=== PATIENT | male | born 1970 | race Caucasian/White ===

== ENCOUNTER 2021-02-05 10:01 | Inpatient (IN) | payer OTHER ==
[2021-02-05] VITALS (9 sets, daily range): BP systolic 122–144; BP diastolic 39–78; PULSE 70–82; TEMP 98.5–98.9
[~2021-02-05] VITALS: Ht 177.8 cm; Wt 205.9 kg
[~2021-02-05 10:01] MED LIST: ALBUTEROL0.83 MG/ML IH; ANORO IH; BENTYL 10MG10 MG/CAP PO; COLCRYS0.6 MG PO; ELIQUIS 5MG PO; FLOVENT 220MCG7.9 GM IH; LASIX 40MG TABL40 MG PO; LEXAPRO 10MG10 MG PO; MOTRIN 800800 MG/TAB PO; NORCO 325 MG-7.1 TAB PO; TOPROL XL 50MG50 MG PO; TYLENOL 500MG500 MG PO; ZANAFLEX CAPSULE4 MG PO
[2021-02-05 11:23] LABS: BASO # 0.1 K/mm3 (0.0-0.2); BASO % 0.5 % (0.0-2.0); EOS # 0.2 K/mm3 (0.0-0.7); EOS % 1.1 % (0-4.0); GRAN # 11.8 K/mm3 (1.4-6.5); GRAN % 79.5 % (42.2-75.2); HEMATOCRIT 48.8 % (42.0-52.0); HEMOGLOBIN 15.7 g/dl (13.5-18.0); LYMPH # 1.6 K/mm3 (1.2-3.4); LYMPH % 10.8 % (20.0-51.0); MEAN CELL VOLUME 86 fl (80.0-100.0); MEAN CORPUSCULAR HEMOGLOBIN 28 pg (27.0-31.0); MEAN CORPUSCULAR HGB CONC 32 g/dl (33.0-37.0); MEAN PLATELET VOLUME 10.3 fl (7.4-10.4); MONO # 1.1 K/mm3 (0.1-0.6); MONO % 7.6 % (1.7-9.3); PLATELET COUNT 372 K/mm3 (130-400); RED BLOOD COUNT 5.66 M/mm3 (4.20-5.60); REDCELL DISTRIBUTION WIDTH-CV 14.1 % (11.5-14.5)
[2021-02-05 11:44] LABS: BILIRUBIN,TOTAL 0.7 mg/dL (0.2-1.2); CALCIUM 9.1 mg/dL (8.4-10.2); CREATININE, serum 0.81 mg/dL (0.72-1.25); POTASSIUM 3.9 mmol/L (3.5-4.5); TOTAL PROTEIN 7.5 gm/dL (6.2-8.1)
--- NOTE | 2021-02-05 17:30 | NUR ---
Patient up from OR. Alert and oriented x 3. Family at bedside. Denies pain at this time. States BLE numb from spinal. Post op VSS and post op fluids infusing per orders. Denies needs at this time.
--- NOTE | 2021-02-05 19:32 | NUR ---
Patient c/o nausea this afternoon, zofran given per orders. [place] given for scrotal pain. Denies needs at this time. Will report off to wild oyster harvester.
--- NOTE | 2021-02-05 20:00 | NUR ---
PATIENT IS ALERT AND ORIENTED X4. PATIENT HAS HUNTER DRAIN TO GROIN ABCESS. PATIENT HAS MARADIAGA WITH CLEAR YELLOW OUTPUT. PATIENT HAS IV TO LEFT AC. PATIENT GIVEN PAIN MEDS PER ORDERS. PATIENT WEARING SCD'S ON BILATERAL LOWER EXTREMITIES. PATIENT DENIES FURTHER NEEDS AT THIS TIME. CALL LIGHT WITHIN REACH. HEAD TO TOE ASSESSMENT COMPLETE.
[2021-02-06] VITALS (7 sets, daily range): BP systolic 121–142; BP diastolic 61–84; PULSE 74–87; TEMP 98–99.1
--- NOTE | 2021-02-06 06:37 | NUR ---
PATIENT DID WELL THROUGHOUT NIGHT. PAIN MEDS GIVEN PER ORDERS. SEBLE PADS CHANGED FOR DRAINAGE FROM ABCESS. NO FURTHER NEEDS AT THIS TIME. WILL REPORT TO DAYSHIFT.
[2021-02-06 08:19] LABS: BASO % 0.3 % (0.0-2.0); EOS # 0.1 K/mm3 (0.0-0.7); EOS % 0.7 % (0-4.0); GRAN # 12.2 K/mm3 (1.4-6.5); GRAN % 81.4 % (42.2-75.2); HEMATOCRIT 46.9 % (42.0-52.0); HEMOGLOBIN 15.1 g/dl (13.5-18.0); LYMPH # 1.3 K/mm3 (1.2-3.4); LYMPH % 8.7 % (20.0-51.0); MEAN CELL VOLUME 87 fl (80.0-100.0); MEAN CORPUSCULAR HEMOGLOBIN 28 pg (27.0-31.0); MEAN CORPUSCULAR HGB CONC 32 g/dl (33.0-37.0); MEAN PLATELET VOLUME 11.1 fl (7.4-10.4); MONO # 1.3 K/mm3 (0.1-0.6); MONO % 8.4 % (1.7-9.3); PLATELET COUNT 350 K/mm3 (130-400); REDCELL DISTRIBUTION WIDTH-CV 14.3 % (11.5-14.5)
--- NOTE | 2021-02-06 09:34 | NUR ---
SW met with the patient to discuss discharge plan. The patient lives in [place] with his significant other, Sultana Mancia (ph#[phone]). He reports independence with ADLs and has a cane. The patient's PCP is Dr. Rakesh Garrett and he receives his medications from [facility]. The patient does not have a DPOA-HC, but he was interested in obtaining a form. SW provided. The patient plans to return home with his signifant other upon discharge. SW to follow as needed. *Discharge plan: home with signifant other*
[2021-02-06] MEDS ORDERED: ASMANEX HF200 MCG/Ac IH (09:39)
[2021-02-06] MEDS ORDERED: TRELEGY ELLIPT1 EACH IH (09:39)
--- NOTE | 2021-02-06 10:58 | NUR ---
First visit from the r d internship. No needs right now.
[2021-02-06 12:56] LABS: CALCIUM 9.3 mg/dL (8.4-10.2); CREATININE, serum 0.7 mg/dL (0.72-1.25)
--- NOTE | 2021-02-06 18:54 | NUR ---
Patient doing well throughout the day. Scrotum elevated on towel. IV restarted this AM to right hand, x 1 attempt. Pain medications given per orders for scrotal pain. Patient states decreased appetite today. Denies needs at this time. Will report off to grocery clerk.
--- NOTE | 2021-02-06 21:43 | NUR ---
PT IN BED. IS ALERT AND ORIENTED X4. HAS SL TO RIGHT HAND, CONNECTED VANCOMYCIN AT THIS TIME. TAKES NORCO 7.5MG 1 TAB PO FOR SCROTUM AND BACK PAIN. HAS DRAIN IN SCROTUM. BLOODY DRAINAGE NOTED. MARADIAGA TO BSD WITH YELLOW URINE. PT HAS OWN CPAP AT BEDSIDE.
--- NOTE | 2021-02-07 | NUR ---
IV ANTIBIOTIC COMPLETE, SL FLUSHED TO RT HAND. PT HAS CPAP ON.
[2021-02-07 03:31] VITALS: BP 135/84; PULSE 69; TEMP 98.2
--- NOTE | 2021-02-07 06:15 | NUR ---
MEDICATED WITH NORCO 7.5MG 1 TAB PO FOR BACK/SCROTUM PAIN.
[2021-02-07 06:54] LABS: BASO % 0.4 % (0.0-2.0); EOS # 0.2 K/mm3 (0.0-0.7); EOS % 1.8 % (0-4.0); GRAN # 8.2 K/mm3 (1.4-6.5); HEMATOCRIT 44.7 % (42.0-52.0); HEMOGLOBIN 14.5 g/dl (13.5-18.0); LYMPH # 1.7 K/mm3 (1.2-3.4); LYMPH % 15.2 % (20.0-51.0); MEAN CELL VOLUME 86 fl (80.0-100.0); MEAN CORPUSCULAR HEMOGLOBIN 28 pg (27.0-31.0); MEAN CORPUSCULAR HGB CONC 32 g/dl (33.0-37.0); MEAN PLATELET VOLUME 11.1 fl (7.4-10.4); MONO # 1.1 K/mm3 (0.1-0.6); PLATELET COUNT 341 K/mm3 (130-400); RED BLOOD COUNT 5.23 M/mm3 (4.20-5.60); REDCELL DISTRIBUTION WIDTH-CV 13.9 % (11.5-14.5)
[2021-02-07 07:07] LABS: CALCIUM 9.2 mg/dL (8.4-10.2); CREATININE, serum 0.7 mg/dL (0.72-1.25); POTASSIUM 3.9 mmol/L (3.5-4.5)
[2021-02-07 08:53] VITALS: BP 119/58; PULSE 76; TEMP 98.7
--- NOTE | 2021-02-07 09:30 | NUR ---
Pt IV had infiltrated. Notified Dr Shelley and received an order for PICC line placement.
--- NOTE | 2021-02-07 10:22 | NUR ---
TIP Churchill with AIVS in placing PICC line
[2021-02-07 12:11] VITALS: BP 150/82; PULSE 74; TEMP 98.3
--- NOTE | 2021-02-07 14:28 | NUR ---
Sherman with PT in working with pt at this time
[2021-02-07 16:00] VITALS: BP 133/90; PULSE 72; TEMP 98.8
--- NOTE | 2021-02-07 16:28 | NUR ---
PATIENT IS ALERT AND ORIENTED X4. SAYS HE WALKED IN ROOM WITH PT. PATIENT HAS MARADIAGA AND OPEN CYST ON TAILBONE. PATIENT HAS IV TO LEFT FOREARM. PATIENT HAS HUNTER DRAIN TO GROIN. PATIENT GIVEN PAIN MEDS PER ORDERS. PATIENT GIVEN WARM BLANKET AND PILLOWS USED TO DISTRIBUTE PRESSURE. DENIES FURTHER NEEDS AT THIS TIME. CALL LIGHT WITHIN REACH.
[2021-02-07 20:01] VITALS: BP 157/79; PULSE 81; TEMP 98.7
--- NOTE | 2021-02-07 23:50 | NUR ---
ALERT AND OX4. DENIES SOA, CHEST PAIN OR DIZZY. RATING SCROTAL PAIN /. MORPHINE AND REPOSITIONED. PM MEDS GIVEN. ANTIBOTICS HUNG. ASSESSMENT COMPLETE. CPAP ON FOR HS. CALL LIGHT WI REACH.
[2021-02-08 00:37] VITALS: BP 148/83; PULSE 80; TEMP 98.6
[2021-02-08 05:06] VITALS: BP 143/88; PULSE 76; TEMP 97.7
[2021-02-08 07:57] VITALS: BP 130/82; PULSE 71; TEMP 98.3
[2021-02-08 09:02] LABS: CALCIUM 10.1 mg/dL (8.4-10.2); CREATININE, serum 0.77 mg/dL (0.72-1.25); POTASSIUM 3.9 mmol/L (3.5-4.5)
[2021-02-08 09:05] LABS: BASO # 0.1 K/mm3 (0.0-0.2); BASO % 0.5 % (0.0-2.0); EOS # 0.3 K/mm3 (0.0-0.7); EOS % 3.3 % (0-4.0); GRAN # 7.2 K/mm3 (1.4-6.5); GRAN % 69.3 % (42.2-75.2); HEMATOCRIT 45.8 % (42.0-52.0); HEMOGLOBIN 14.7 g/dl (13.5-18.0); LYMPH # 1.5 K/mm3 (1.2-3.4); LYMPH % 14.6 % (20.0-51.0); MEAN CELL VOLUME 86 fl (80.0-100.0); MEAN CORPUSCULAR HEMOGLOBIN 28 pg (27.0-31.0); MEAN CORPUSCULAR HGB CONC 32 g/dl (33.0-37.0); MEAN PLATELET VOLUME 10.8 fl (7.4-10.4); MONO # 1.2 K/mm3 (0.1-0.6); MONO % 11.5 % (1.7-9.3); PLATELET COUNT 326 K/mm3 (130-400); RED BLOOD COUNT 5.31 M/mm3 (4.20-5.60); REDCELL DISTRIBUTION WIDTH-CV 13.8 % (11.5-14.5)
--- NOTE | 2021-02-08 10:30 | NUR ---
PT working with pt at thistime
--- NOTE | 2021-02-08 12:01 | NUR ---
KRISTYN met with the patient to follow up and review discharge plan. The patient states that he is still having a lot of pain with ambulation. He states that he still plans on returning home with his girlfriend upon discharge. He reports that if he goes home with a PICC line, then he may be interested in home health or might just get outpatient services. He would like to see how the rest of today goes. SW to continue to follow.
[2021-02-08 12:45] VITALS: BP 139/68; PULSE 80; TEMP 98.6
--- NOTE | 2021-02-08 12:54 | NUR ---
Pt reported to student that he was in a lot of pain and needed pain medication, requesting IV pain medication. Informed him earlier that he had pain medication at 0850 and it was every 4 hours. Discussed again with pt and he stated that he thought i said 0815. Asked pt to report his pain and he said it was 4/10. Oral and IV pain medication given. Discussed with pt his overall pain which he stated is getting better over time. He said that he is now able to walk to the door and is able to sit on a toilet. Pt appears to be relaxed, call light within reach
[2021-02-08 16:00] VITALS: BP 140/70; PULSE 82; TEMP 97.4
--- NOTE | 2021-02-08 16:41 | NUR ---
Pt has done well throughout the afternoon. Oral pain medication for the most part is taking care of his pain. Pt did ambulate out to the desk and back with PT.
[2021-02-08 19:34] VITALS: BP 133/65; PULSE 78; TEMP 98.2
[2021-02-09 00:40] VITALS: BP 131/78; PULSE 88; TEMP 98.7
[2021-02-09 04:00] VITALS: BP 126/66; PULSE 73; TEMP 98.1
[2021-02-09 07:07] VITALS: BP 135/79; PULSE 73; TEMP 98.6
[2021-02-09 07:14] LABS: BASO # 0.1 K/mm3 (0.0-0.2); BASO % 0.5 % (0.0-2.0); EOS # 0.6 K/mm3 (0.0-0.7); EOS % 5.2 % (0-4.0); GRAN # 7.3 K/mm3 (1.4-6.5); GRAN % 69.1 % (42.2-75.2); HEMATOCRIT 43.3 % (42.0-52.0); HEMOGLOBIN 13.9 g/dl (13.5-18.0); LYMPH # 1.5 K/mm3 (1.2-3.4); LYMPH % 14.7 % (20.0-51.0); MEAN CELL VOLUME 87 fl (80.0-100.0); MEAN CORPUSCULAR HEMOGLOBIN 28 pg (27.0-31.0); MEAN CORPUSCULAR HGB CONC 32 g/dl (33.0-37.0); MEAN PLATELET VOLUME 10.5 fl (7.4-10.4); MONO % 9.9 % (1.7-9.3); PLATELET COUNT 305 K/mm3 (130-400); REDCELL DISTRIBUTION WIDTH-CV 13.8 % (11.5-14.5)
[2021-02-09 07:31] LABS: CALCIUM 9.3 mg/dL (8.4-10.2); CREATININE, serum 0.75 mg/dL (0.72-1.25); POTASSIUM 4.2 mmol/L (3.5-4.5)
[2021-02-09] MEDS ORDERED: AMOXICILLIN 8751 TAB PO (08:51)
[2021-02-09] MEDS ORDERED: NORCO 325 MG-101 TAB PO (08:54)
--- NOTE | 2021-02-09 10:12 | NUR ---
The patient is being switched to oral antibiotics. The patient is to discharge back home with his girfriend today, 02/09. No additional needs at this time.
[2021-02-09 12:25] VITALS: BP 144/82; PULSE 72; TEMP 98.3
--- NOTE | 2021-02-09 14:29 | NUR ---
Discharge education provided to patient and significant other. Educated on when to call provider and follow up appointments. Patient educated on medications and deras catheter care. Patient verbalizes understanding. Denies additional needs at this time. Midline discontinued by Kerline WHELAN.
== END 2021-02-09 14:30 | disposition home or self-care (01) | DRG 717 ==
LOC: COL.ER 10:01 → INPTSU 13:24 → SURG 13:24
PROVIDERS: Physician Assistant; Student in an Organized Health Care Education/Training Program; Surgery; ADMIT Internal Medicine
PROC: 0V950ZZ Drainage of Scrotum, Open Approach (ICD-10-PCS; principal; 2021-02-05 14:15)
PROC: 05HY33Z Insertion of Infusion Device into Upper Vein, Percutaneous Approach (ICD-10-PCS; 2021-02-07)
DX: N49.2 Inflammatory disorders of scrotum (principal); L03.315 Cellulitis of perineum; Z68.44 Body mass index [BMI] 60.0-69.9, adult; K58.9 Irritable bowel syndrome, unspecified; E66.01 Morbid (severe) obesity due to excess calories; J45.909 Unspecified asthma, uncomplicated; M19.90 Unspecified osteoarthritis, unspecified site; L40.9 Psoriasis, unspecified; K76.0 Fatty (change of) liver, not elsewhere classified; I48.0 Paroxysmal atrial fibrillation; M10.9 Gout, unspecified; F32.A Depression, unspecified; F41.9 Anxiety disorder, unspecified; G89.29 Other chronic pain; M54.9 Dorsalgia, unspecified; K42.9 Umbilical hernia without obstruction or gangrene; B96.20 Unspecified Escherichia coli [E. coli] as the cause of diseases classified elsewhere; Z87.442 Personal history of urinary calculi; Z87.891 Personal history of nicotine dependence
CPT/HCPCS: 99223-AI; 99232-AI; 99233-AI; 99239; C1751; C1892; J0696; J1335; J1650; J2250; J2270; J2405; J2543; J3010; J3370; J7040; Q9967

== ENCOUNTER 2021-02-10 01:57 | Emergency (ER) | payer OTHER ==
[~2021-02-10 01:57] MED LIST changes: +AMOXICILLIN 8751 TAB PO; +ASMANEX HF200 MCG/Ac IH; +NORCO 325 MG-101 TAB PO; +TRELEGY ELLIPT1 EACH IH
[2021-02-10 01:58] VITALS: TEMP 97.4
[2021-02-10 04:11] VITALS: BP 155/92; PULSE 65
== END 2021-02-10 04:11 | disposition home or self-care (01) ==
LOC: COL.ER 01:57
DX: K59.00 Constipation, unspecified (principal); J45.909 Unspecified asthma, uncomplicated; E66.01 Morbid (severe) obesity due to excess calories; I48.0 Paroxysmal atrial fibrillation; Z79.899 Other long term (current) drug therapy

== ENCOUNTER 2021-09-29 20:26 | Emergency (ER) | payer OTHER ==
[~2021-09-29] VITALS: Ht 180.3 cm; Wt 201.8 kg
[2021-09-29] MEDS ORDERED: CARDIZEM CD 12120 MG PO (20:44)
[2021-09-29] MEDS ORDERED: MOBIC15 MG PO (20:44)
[2021-09-29] MEDS ORDERED: WELLBUTRIN XL150 MG PO (20:45)
[2021-09-29] MEDS ORDERED: TRELEGY ELLIPT1 EACH IH (20:45)
[2021-09-29] MEDS ORDERED: PROAIR HFA0.09 MG/AC IH (20:46)
[2021-09-29 21:35] LABS: HEMATOCRIT 50.3 % (42.0-52.0); HEMOGLOBIN 16.4 g/dl (13.5-18.0); MEAN CELL VOLUME 85 fl (80.0-100.0); MEAN CORPUSCULAR HEMOGLOBIN 28 pg (27-31); MEAN CORPUSCULAR HGB CONC 33 g/dl (33.0-37.0); MEAN PLATELET VOLUME 10.7 fl (7.4-10.4); PLATELET COUNT 357 K/mm3 (130-400); RED BLOOD COUNT 5.91 M/mm3 (4.20-5.60); REDCELL DISTRIBUTION WIDTH-CV 14.6 % (11.5-14.5)
[2021-09-29 21:50] LABS: BAND 2 % (0-10); LYMPHOCYTE 14 % (20.0-51.0); NEUTROPHILS 78 % (42.0-75.2); PLATELET ESTIMATE NORMAL (NORMAL)
[2021-09-29 21:56] LABS: ALBUMIN 3.4 gm/dL (3.5-5.0); CALCIUM 9.3 mg/dL (8.4-10.2); CREATININE, serum 0.83 mg/dL (0.72-1.25); MAGNESIUM 2.2 mg/dL (1.6-2.6); PHOSPHOROUS 2.5 mg/dL (2.3-4.7)
[2021-09-29 22:05] LABS: TROPONIN-I 0.045 ng/mL (0.00-0.033)
[2021-09-30 01:40] VITALS: BP 114/90; PULSE 84; TEMP 98.6
== END 2021-09-30 01:40 | disposition home or self-care (01) ==
LOC: COL.ER 20:26
PROVIDERS: Emergency Medicine
DX: I48.91 Unspecified atrial fibrillation (principal); I51.4 Myocarditis, unspecified; Z87.891 Personal history of nicotine dependence
CPT/HCPCS: J7120

== ENCOUNTER 2022-03-01 13:41 | Day surgery (SDC) | payer OTHER ==
[~2022-03-01] VITALS: Ht 180.3 cm; Wt 195.8 kg
[~2022-03-01 13:41] MED LIST changes: +CARDIZEM CD 12120 MG PO; +LEVAQUIN 5500 MG/TA1 PO; +MOBIC15 MG PO; +NORCO 325 MG-51 TAB PO; +OZEMPIC0.25 MG/0. SQ; +PATANOL OPHTHALM5 ML OU; +PROAIR HFA0.09 MG/AC IH; +SINGULAIR 110 MG/TAB PO; +TRIAMCINOLONE A15 GM TP; +ULTRAM 50MG TAB50 MG PO; +WELLBUTRIN XL150 MG PO; +ZYRTEC 10MG10 MG PO
[2022-03-01 14:10] VITALS: BP 128/75; PULSE 90; TEMP 98.4
--- NOTE | 2022-03-01 14:20 | NUR ---
PATIENT ARRIVES AT THIS TIME AMBULATORY. DENIES ANY PAIN OR DISCOMFORT AT THIS TIME. PT STATED THAT BOWEL PREP WENT WELL AND HE WAS ABLE TO SEE THE BOTTOM OF THE TOILET WHEN HE STOOLED. BLOOD GLUCOSE WAS MEASURED AT 88, ALERT AND ORIENTED X4.
[2022-03-01 15:55] VITALS: BP 146/88; PULSE 81
--- NOTE | 2022-03-01 15:55 | NUR ---
PATIENT RETURNS TO BAY 5 PER CART AND TRANSFERS FROM CART TO RECLINER WITH ONE PERSON ASSIST. IV FLUIDS INFUSING. CALL LIGHT IN REACH. DENIES PAIN OR NAUSEA. EATING MUFFIN AND SIPPING ON ORANGE JUICE. STATES DR. BRYANT TALKED TO HIM IN THE ROOM AND HAS NO QUESTIONS OR CONCERNS.
[2022-03-01 16:10] VITALS: BP 132/80; PULSE 79
--- NOTE | 2022-03-01 16:10 | NUR ---
TOLERATES SNACK AND JUICE.
[2022-03-01 16:25] VITALS: BP 161/82; PULSE 85
--- NOTE | 2022-03-01 16:25 | NUR ---
IV DISCONTINUED AND SITE IS FREE OF REDNESS.
--- NOTE | 2022-03-01 16:30 | NUR ---
AMBULATES TO BATHROOM AND GAIT STEADY. IS DRESSED AND AWAITS RIDE HOME.
--- NOTE | 2022-03-01 16:51 | NUR ---
PATIENT DISCHARGED TO HOME DRIVEN BY FRIEND AND TAKEN TO CAR PER WHEELCHAIR AND ASSISTED INTO CAR WITH INSTRUCTIONS IN HAND.
[2022-03-01 23:59] VITALS: BP 140/83; PULSE 81
== END 2022-03-01 16:51 | disposition home or self-care (01) ==
LOC: SDCO 13:41
DX: D12.3 Benign neoplasm of transverse colon (principal); D12.0 Benign neoplasm of cecum; K21.9 Gastro-esophageal reflux disease without esophagitis; E66.9 Obesity, unspecified; K58.1 Irritable bowel syndrome with constipation; Z68.44 Body mass index [BMI] 60.0-69.9, adult; Z87.891 Personal history of nicotine dependence
CPT/HCPCS: J2704

== ENCOUNTER 2022-12-19 09:45 | Outpatient (RCR) | payer OTHER | END 2022-12-26 | disposition home or self-care (01) | LOC: WSPT | DX: M25.511 Pain in right shoulder (principal) ==

== ENCOUNTER 2023-02-17 08:56 | Outpatient (RCR) | payer OTHER | END 2023-02-25 | disposition home or self-care (01) | LOC: WSST | DX: R13.10 Dysphagia, unspecified (principal) ==

== ENCOUNTER 2023-05-08 10:42 | Emergency (ER) | payer OTHER ==
[~2023-05-08] VITALS: Ht 180.3 cm; Wt 183.2 kg
[2023-05-08 11:05] VITALS: TEMP 98.3
[2023-05-08 15:27] LABS: COLLECTION METHOD CLEAN CATCH
[2023-05-08 15:36] LABS: BASO # 0.1 K/mm3 (0.0-0.2); BASO % 0.7 % (0.0-2.0); EOS # 0.3 K/mm3 (0.0-0.7); EOS % 2.4 % (0.0-4.0); GRAN # 9.2 K/mm3 (1.4-6.5); GRAN % 74.8 % (42.2-75.2); HEMATOCRIT 46.5 % (42.0-52.0); HEMOGLOBIN 15.5 g/dl (13.5-18.0); LYMPH # 1.7 K/mm3 (1.2-3.4); LYMPH % 14.1 % (20.0-51.0); MEAN CELL VOLUME 86 fl (80.0-100.0); MEAN CORPUSCULAR HEMOGLOBIN 29 pg (27-31); MEAN CORPUSCULAR HGB CONC 33 g/dl (33.0-37.0); MEAN PLATELET VOLUME 10.2 fl (7.4-10.4); MONO # 0.9 K/mm3 (0.1-0.6); MONO % 7.7 % (1.7-9.3); PLATELET COUNT 306 K/mm3 (130-400); RED BLOOD COUNT 5.44 M/mm3 (4.20-5.60); REDCELL DISTRIBUTION WIDTH-CV 13.4 % (11.5-14.5)
[2023-05-08 15:59] LABS: ALBUMIN 3.3 gm/dL (3.5-5.0); BILIRUBIN,TOTAL 0.7 mg/dL (0.2-1.2); CALCIUM 9.3 mg/dL (8.4-10.2); CREATININE, serum 0.74 mg/dL (0.72-1.25); POTASSIUM 3.9 mmol/L (3.5-4.5); TOTAL PROTEIN 7.3 gm/dL (6.2-8.1)
[2023-05-08 16:18] LABS: SQUAMOUS EPITHELIAL 0-2 /hpf (0-10); URINE APPEARANCE Clear (CLEAR/HAZY); URINE BLOOD Negative (NEGATIVE); URINE COLOR Amber (YELLOW); URINE GLUCOSE Negative (NEGATIVE); URINE KETONE Negative (NEGATIVE); URINE NITRATE Negative (NEGATIVE); URINE PROTEIN(semi-quant) Negative (NEGATIVE); URINE RBC 0-2 /hpf (0-2); URINE UROBILINOGEN 0.2 E.U/dL (0.2-1.0)
[2023-05-08] MEDS ORDERED: PERCOCET 325 MG1 TA2 PO (18:43)
[2023-05-08 19:31] VITALS: BP 142/80; PULSE 94
== END 2023-05-08 19:31 | disposition home or self-care (01) ==
LOC: COL.ER 10:42
PROVIDERS: Physician Assistant
DX: N49.2 Inflammatory disorders of scrotum (principal); E66.01 Morbid (severe) obesity due to excess calories; Z68.43 Body mass index [BMI] 50.0-59.9, adult; Z87.891 Personal history of nicotine dependence
CPT/HCPCS: J7030; Q9967

== ENCOUNTER 2023-05-19 10:30 | Outpatient (RCR) | payer OTHER ==
[~2023-05-19 10:30] MED LIST changes: +PERCOCET 325 MG1 TA2 PO
== END 2023-05-28 | disposition home or self-care (01) ==
LOC: WSPT
DX: M54.2 Cervicalgia (principal); M54.51 Vertebrogenic low back pain

== ENCOUNTER 2024-02-11 14:31 | Emergency (ER) | payer OTHER ==
[~2024-02-11] VITALS: Ht 180.3 cm; Wt 180.0 kg
[2024-02-11 14:42] VITALS: TEMP 98.9
[2024-02-11 17:21] LABS: BASO % 0.4 % (0.0-2.0); EOS # 0.7 K/mm3 (0.0-0.7); GRAN # 6.6 K/mm3 (1.4-6.5); GRAN % 69.8 % (42.2-75.2); HEMATOCRIT 44.7 % (42.0-52.0); HEMOGLOBIN 15.1 g/dl (13.5-18.0); LYMPH # 1.4 K/mm3 (1.2-3.4); LYMPH % 14.9 % (20.0-51.0); MEAN CELL VOLUME 86 fl (80.0-100.0); MEAN CORPUSCULAR HEMOGLOBIN 29 pg (27-31); MEAN CORPUSCULAR HGB CONC 34 g/dl (33.0-37.0); MONO # 0.7 K/mm3 (0.1-0.6); MONO % 7.6 % (1.7-9.3); PLATELET COUNT 271 K/mm3 (130-400); RED BLOOD COUNT 5.18 M/mm3 (4.20-5.60); REDCELL DISTRIBUTION WIDTH-CV 13.3 % (11.5-14.5)
[2024-02-11 17:28] LABS: INR 1.2 (0.8-3.0)
[2024-02-11 17:31] LABS: PARTIAL THROMBOPLASTIN TIME 34.5 SECONDS (26.0-37.0)
[2024-02-11 17:40] LABS: ALBUMIN 3.4 g/dL (3.5-5.0); BILIRUBIN,TOTAL 0.8 mg/dL (0.2-1.2); CALCIUM 9.2 mg/dL (8.4-10.2); CREATININE, serum 0.75 mg/dL (0.72-1.25); POTASSIUM 3.9 mEq/L (3.5-4.5); TOTAL PROTEIN 6.9 g/dl (6.2-8.1)
[2024-02-11 18:43] VITALS: BP 119/59; PULSE 71
== END 2024-02-11 18:44 | disposition home or self-care (01) ==
LOC: COL.ER 14:31
PROVIDERS: Emergency Medicine
DX: K91.840 Postprocedural hemorrhage of a digestive system organ or structure following a digestive system procedure (principal); I48.91 Unspecified atrial fibrillation; Z79.899 Other long term (current) drug therapy; Z87.891 Personal history of nicotine dependence